=== PATIENT | male | born 1970 | race Hispanic/Latino ===

== ENCOUNTER 2021-10-28 01:12 | Emergency (ER) | payer OTHER ==
[~2021-10-28] VITALS: Ht 165.1 cm; Wt 81.6 kg
[2021-10-28] MEDS ORDERED: CASIRIVIMAB/IMDEVIMAB 10 ML in SODIUM CHLORIDE 0.9% 100 ML IV ONE (01:30)
== END 2021-10-28 02:45 | disposition home or self-care (01) ==
LOC: ER 01:22
DX: U07.1 COVID-19 (principal); R05.9 Cough, unspecified; R50.9 Fever, unspecified
CPT/HCPCS: 99282; J7050

== ENCOUNTER 2021-10-29 09:09 | Inpatient (IN) | payer OTHER ==
[2021-10-29] VITALS (14 sets, daily range): BP systolic 92–127; BP diastolic 53–83
[~2021-10-29] VITALS: Ht 170.2 cm; Wt 82.3 kg
[2021-10-29] MEDS ORDERED: DILTIAZEM HCL 5 MG/ML 5 ML VIAL IV STA (09:24)
[2021-10-29] MEDS: DEXAMETHASONE SOD PHOS 10 MG/1 ML VIAL IV SCH (09:29)
[2021-10-29] MEDS ORDERED: REMDESIVIR 100MG 200 MG in SODIUM CHLORIDE 0.9% 100 ML IV SCH (09:30)
[2021-10-29] MEDS: CEFTRIAXONE 2 GM in SODIUM CHLORIDE 0.9% 100 ML IV SCH (09:30)
[2021-10-29] MEDS ORDERED: SODIUM CHLORIDE 0.9% 500ML 500 ML IV ONE (09:30)
[2021-10-29] MEDS ORDERED: SODIUM CHLORIDE 0.9% 500ML 500 ML ONE (09:37)
[2021-10-29 09:52] LABS: BASOPHILS % 0.2 % (0.0-1.0); HEMATOCRIT 50.8 % (38.2-49.6); HEMOGLOBIN 17.2 g/dL (14.0-18.0); LYMPHOCYTES # (AUTO) 1.4 (1.0-3.2); LYMPHOCYTES % 9.3 % (18.0-39.1); MEAN CORPUSCULAR HEMOGLOBIN 31.6 pg (28-32); MEAN CORPUSCULAR HGB CONC 33.9 g/dL (31-35); MEAN CORPUSCULAR VOLUME 93.2 fL (81-99); MONOCYTES # (AUTO) 0.9 (0.2-0.8); MONOCYTES % 5.7 % (4.4-11.3); NEUTROPHILS # (AUTO) 12.5 (2.1-6.9); NEUTROPHILS % 83.1 % (38.7-80.0); PLATELET COUNT 157 x10e3/uL (140-360); RED BLOOD COUNT 5.45 x10e6/uL (4.3-5.7); RED CELL DISTRIBUTION WIDTH 13.2 % (11.7-14.4)
[2021-10-29 10:09] LABS: INR 0.93; PARTIAL THROMBOPLASTIN TIME 35.4 seconds (23.8-35.5); PROTHROMBIN TIME 13.2 seconds (11.9-14.5)
[2021-10-29 10:10] LABS: ALANINE AMINOTRANSFERASE 35 IU/L (0-55); ALBUMIN/GLOBULIN RATIO 0.6 (0.8-2.0); ALKALINE PHOSPHATASE 71 IU/L (40-150); ANION GAP 20.4 mmol/L (8-16); BLOOD UREA NITROGEN 16 mg/dL (7-26); BUN/CREATININE RATIO 20 (6-25); CALCIUM 9.3 mg/dL (8.4-10.2); CARBON DIOXIDE 24 mmol/L (22-29); CHLORIDE 103 mmol/L (98-107); CREATINE KINASE 207 IU/L (30-200); EST GLOMERULAR FILTRATION RATE 101 ML/MIN (60-); GLUCOSE 105 mg/dL (74-118); MAGNESIUM 2.4 MG/DL (1.3-2.1); POTASSIUM 4.4 mmol/L (3.5-5.1); SODIUM 143 mmol/L (136-145)
[2021-10-29] MEDS ORDERED: ENOXAPARIN INJ 80 MG/0.8 ML SYR SC ONE (10:30)
[2021-10-29] MEDS ORDERED: ACETAMINOPHEN 325 MG TAB ONE (10:37)
[2021-10-29] MEDS ORDERED: LACTATED RINGER'S 500 ML INJ ONE (11:00)
[2021-10-29] MEDS ORDERED: ACETAMINOPHEN 325 MG TAB PO ONE (11:00)
[2021-10-29 12:55] LABS: LYMPHOCYTES % (MANUAL) 7 % (19-48); MONOCYTES % (MANUAL) 5 % (3.4-9.0); NEUTROPHILS % (MANUAL) 85 % (40-74); PLATELET ESTIMATE ADEQUATE; PLATELET MORPHOLOGY COMMENT NORMAL; RBC MORPHOLOGY COMMENT NORMAL
[2021-10-29] MEDS ORDERED: AMIODARONE HCL 150 MG/100 ML BAG IV ONE (14:30)
[2021-10-29] MEDS ORDERED: AMIODARONE 900MG 500 ML IV ONE (14:30)
[2021-10-29] MEDS: DEXMEDETOMIDINE 400MCG/NS100ML 100 ML IV PRN (15:25)
[2021-10-29] MEDS: GUAIFENESIN/CODEINE 5 ML LIQD PO PRN ×2 (15:26→21:00)
[2021-10-29 17:06] LABS: CREATINE KINASE MB 0.6 ng/mL (0-5.0)
[2021-10-29] MEDS: ASCORBIC ACID 500 MG TAB PO SCH (17:06)
[2021-10-29] MEDS: ENOXAPARIN INJ 80 MG/0.8 ML SYR SC SCH (21:00)
[2021-10-29 21:31] LABS: CREATINE KINASE MB 0.5 ng/mL (0-5.0)
[2021-10-30] VITALS (23 sets, daily range): BP systolic 93–128; BP diastolic 59–89
[2021-10-30 06:37] LABS: BASOPHILS % 0.1 % (0.0-1.0); HEMATOCRIT 44.4 % (38.2-49.6); HEMOGLOBIN 14.5 g/dL (14.0-18.0); LYMPHOCYTES # (AUTO) 1.1 (1.0-3.2); LYMPHOCYTES % 8.8 % (18.0-39.1); MEAN CORPUSCULAR HEMOGLOBIN 31.3 pg (28-32); MEAN CORPUSCULAR HGB CONC 32.7 g/dL (31-35); MEAN CORPUSCULAR VOLUME 95.9 fL (81-99); MONOCYTES # (AUTO) 0.7 (0.2-0.8); MONOCYTES % 5.4 % (4.4-11.3); NEUTROPHILS # (AUTO) 10.5 (2.1-6.9); NEUTROPHILS % 85.2 % (38.7-80.0); PLATELET COUNT 175 x10e3/uL (140-360); RED BLOOD COUNT 4.63 x10e6/uL (4.3-5.7); RED CELL DISTRIBUTION WIDTH 13.3 % (11.7-14.4)
[2021-10-30 07:08] LABS: ALBUMIN 2.3 g/dL (3.5-5.0); ALBUMIN/GLOBULIN RATIO 0.6 (0.8-2.0); ANION GAP 14.2 mmol/L (8-16); CALCIUM 8.1 mg/dL (8.4-10.2); CREATININE, SERUM 0.66 mg/dL (0.72-1.25); POTASSIUM 4.2 mmol/L (3.5-5.1)
[2021-10-30 07:42] LABS: CREATINE KINASE MB 0.5 ng/mL (0-5.0)
[2021-10-30] MEDS: DEXMEDETOMIDINE 400MCG/NS100ML 100 ML IV PRN ×2 (08:51→20:32)
[2021-10-30] MEDS ORDERED: SODIUM CHLORIDE 0.9% 200 ML ONE (09:15)
[2021-10-30] MEDS ORDERED: REMDESIVIR 100MG 100 MG in SODIUM CHLORIDE 0.9% 100 ML IV SCH (10:00)
[2021-10-30] MEDS: METOPROLOL SUCCINATE 25 MG TAB XL PO SCH (10:00)
[2021-10-30] MEDS ORDERED: CEFTRIAXONE 2 GM VIAL ONE (11:09)
[2021-10-30] MEDS: ZINC SULFATE 50 MG CAP PO SCH (12:07)
[2021-10-30] MEDS: ENOXAPARIN INJ 80 MG/0.8 ML SYR SC SCH ×2 (12:07→20:16)
[2021-10-30] MEDS: ASCORBIC ACID 500 MG TAB PO SCH ×2 (12:07→17:34)
[2021-10-30] MEDS: REMDESIVIR 100MG 100 MG in SODIUM CHLORIDE 0.9% 100 ML IV SCH (12:08)
[2021-10-30] MEDS ORDERED: SODIUM CHLORIDE 0.9% IV ONE (13:15)
[2021-10-30] MEDS ORDERED: TOCILIZUMAB IV ONE (13:15)
[2021-10-30] MEDS ORDERED: AMIODARONE HCL 200 MG TAB PO ONE (14:30)
[2021-10-30] MEDS ORDERED: AMIODARONE HCL 200 MG TAB PO SCH (17:00)
[2021-10-30] MEDS: AMIODARONE HCL 200 MG TAB PO SCH (21:00)
[2021-10-31] VITALS (21 sets, daily range): BP systolic 95–143; BP diastolic 64–106
[2021-10-31] MEDS: GUAIFENESIN/CODEINE 5 ML LIQD PO PRN ×3 (00:33→18:33)
[2021-10-31 05:05] LABS: BASOPHILS % 0.1 % (0.0-1.0); HEMATOCRIT 44.6 % (38.2-49.6); HEMOGLOBIN 14.6 g/dL (14.0-18.0); LYMPHOCYTES # (AUTO) 0.9 (1.0-3.2); LYMPHOCYTES % 8.7 % (18.0-39.1); MEAN CORPUSCULAR HEMOGLOBIN 31.1 pg (28-32); MEAN CORPUSCULAR HGB CONC 32.7 g/dL (31-35); MEAN CORPUSCULAR VOLUME 95.1 fL (81-99); MONOCYTES # (AUTO) 0.7 (0.2-0.8); MONOCYTES % 6.6 % (4.4-11.3); NEUTROPHILS # (AUTO) 8.7 (2.1-6.9); PLATELET COUNT 207 x10e3/uL (140-360); RED BLOOD COUNT 4.69 x10e6/uL (4.3-5.7); RED CELL DISTRIBUTION WIDTH 12.9 % (11.7-14.4)
[2021-10-31 05:33] LABS: ALBUMIN 2.4 g/dL (3.5-5.0); ALBUMIN/GLOBULIN RATIO 0.6 (0.8-2.0); ANION GAP 14.1 mmol/L (8-16); CALCIUM 7.9 mg/dL (8.4-10.2); CREATININE, SERUM 0.63 mg/dL (0.72-1.25); POTASSIUM 4.1 mmol/L (3.5-5.1)
[2021-10-31] MEDS: DEXAMETHASONE SOD PHOS 10 MG/1 ML VIAL IV SCH (09:44)
[2021-10-31] MEDS: CEFTRIAXONE 2 GM in SODIUM CHLORIDE 0.9% 100 ML IV SCH (09:44)
[2021-10-31] MEDS: ENOXAPARIN INJ 80 MG/0.8 ML SYR SC SCH ×2 (09:45→20:56)
[2021-10-31] MEDS: ZINC SULFATE 50 MG CAP PO SCH (09:45)
[2021-10-31] MEDS: ASCORBIC ACID 500 MG TAB PO SCH ×2 (09:45→17:00)
[2021-10-31] MEDS: AMIODARONE HCL 200 MG TAB PO SCH ×2 (09:45→20:56)
[2021-10-31] MEDS: METOPROLOL SUCCINATE 25 MG TAB XL PO SCH (09:45)
[2021-10-31] MEDS: REMDESIVIR 100MG 100 MG in SODIUM CHLORIDE 0.9% 100 ML IV SCH (09:45)
[2021-10-31] MEDS ORDERED: SODIUM CHLORIDE 0.9% 100 ML ONE (18:04)
[2021-10-31] MEDS: DEXMEDETOMIDINE 400MCG/NS100ML 100 ML IV PRN (18:05)
[2021-10-31] MEDS ORDERED: TOCILIZUMAB 400 MG in SODIUM CHLORIDE 0.9% 100 ML IV SCH (18:15)
[2021-11-01] VITALS (24 sets, daily range): BP systolic 97–141; BP diastolic 74–97
[2021-11-01] MEDS: DEXMEDETOMIDINE 400MCG/NS100ML 100 ML IV PRN ×4 (00:42→20:29)
[2021-11-01 05:07] LABS: BASOPHILS % 0.2 % (0.0-1.0); HEMATOCRIT 45.3 % (38.2-49.6); HEMOGLOBIN 15.2 g/dL (14.0-18.0); LYMPHOCYTES # (AUTO) 0.9 (1.0-3.2); LYMPHOCYTES % 7.4 % (18.0-39.1); MEAN CORPUSCULAR HEMOGLOBIN 31.1 pg (28-32); MEAN CORPUSCULAR HGB CONC 33.6 g/dL (31-35); MEAN CORPUSCULAR VOLUME 92.8 fL (81-99); MONOCYTES # (AUTO) 0.6 (0.2-0.8); MONOCYTES % 4.6 % (4.4-11.3); NEUTROPHILS # (AUTO) 10.9 (2.1-6.9); NEUTROPHILS % 86.5 % (38.7-80.0); PLATELET COUNT 270 x10e3/uL (140-360); RED BLOOD COUNT 4.88 x10e6/uL (4.3-5.7); RED CELL DISTRIBUTION WIDTH 12.5 % (11.7-14.4)
[2021-11-01 05:22] LABS: ALBUMIN 2.5 g/dL (3.5-5.0); ALBUMIN/GLOBULIN RATIO 0.7 (0.8-2.0); CREATININE, SERUM 0.7 mg/dL (0.72-1.25)
[2021-11-01] MEDS: GUAIFENESIN/CODEINE 5 ML LIQD PO PRN ×2 (06:34→13:17)
[2021-11-01] MEDS: METOPROLOL SUCCINATE 25 MG TAB XL PO SCH (08:25)
[2021-11-01] MEDS: CEFTRIAXONE 2 GM in SODIUM CHLORIDE 0.9% 100 ML IV SCH (08:25)
[2021-11-01] MEDS: DEXAMETHASONE SOD PHOS 10 MG/1 ML VIAL IV SCH (08:25)
[2021-11-01] MEDS: AMIODARONE HCL 200 MG TAB PO SCH ×2 (08:25→21:37)
[2021-11-01] MEDS: ASCORBIC ACID 500 MG TAB PO SCH ×2 (08:26→17:15)
[2021-11-01] MEDS: ZINC SULFATE 50 MG CAP PO SCH (08:26)
[2021-11-01] MEDS: REMDESIVIR 100MG 100 MG in SODIUM CHLORIDE 0.9% 100 ML IV SCH (08:26)
[2021-11-01] MEDS: ENOXAPARIN INJ 80 MG/0.8 ML SYR SC SCH ×2 (08:26→21:37)
[2021-11-01] MEDS: BENZONATATE 100 MG CAP PO PRN (13:17)
[2021-11-01] MEDS ORDERED: POLYETHYLENE GLYCOL 3350 17 GM PACK PO PRN ×2 (17:30)
[2021-11-01] MEDS: DOCUSATE SODIUM 100 MG CAP PO SCH (18:07)
[2021-11-02] VITALS (26 sets, daily range): BP systolic 100–145; BP diastolic 66–98
[2021-11-02] MEDS: BENZONATATE 100 MG CAP PO PRN ×2 (01:46→14:31)
[2021-11-02] MEDS: GUAIFENESIN/CODEINE 5 ML LIQD PO PRN (01:46)
[2021-11-02 05:17] LABS: BASOPHILS % 0.2 % (0.0-1.0); HEMATOCRIT 48.9 % (38.2-49.6); HEMOGLOBIN 16.4 g/dL (14.0-18.0); LYMPHOCYTES % 7.9 % (18.0-39.1); MEAN CORPUSCULAR HEMOGLOBIN 31.1 pg (28-32); MEAN CORPUSCULAR HGB CONC 33.5 g/dL (31-35); MEAN CORPUSCULAR VOLUME 92.6 fL (81-99); MONOCYTES # (AUTO) 0.4 (0.2-0.8); MONOCYTES % 3.2 % (4.4-11.3); NEUTROPHILS % 87.4 % (38.7-80.0); PLATELET COUNT 286 x10e3/uL (140-360); RED BLOOD COUNT 5.28 x10e6/uL (4.3-5.7); RED CELL DISTRIBUTION WIDTH 12.5 % (11.7-14.4)
[2021-11-02 05:52] LABS: ALBUMIN 2.6 g/dL (3.5-5.0); ALBUMIN/GLOBULIN RATIO 0.7 (0.8-2.0); ANION GAP 13.1 mmol/L (8-16); CALCIUM 8.2 mg/dL (8.4-10.2); CREATININE, SERUM 0.66 mg/dL (0.72-1.25); POTASSIUM 4.1 mmol/L (3.5-5.1)
[2021-11-02] MEDS: ZINC SULFATE 50 MG CAP PO SCH (08:38)
[2021-11-02] MEDS: ASCORBIC ACID 500 MG TAB PO SCH ×2 (08:38→16:12)
[2021-11-02] MEDS: DOCUSATE SODIUM 100 MG CAP PO SCH (08:38)
[2021-11-02] MEDS: DEXAMETHASONE SOD PHOS 10 MG/1 ML VIAL IV SCH (08:38)
[2021-11-02] MEDS: METOPROLOL SUCCINATE 25 MG TAB XL PO SCH (08:38)
[2021-11-02] MEDS: CEFTRIAXONE 2 GM in SODIUM CHLORIDE 0.9% 100 ML IV SCH (08:38)
[2021-11-02] MEDS: ENOXAPARIN INJ 80 MG/0.8 ML SYR SC SCH ×2 (08:38→20:33)
[2021-11-02] MEDS: AMIODARONE HCL 200 MG TAB PO SCH ×2 (08:38→20:33)
[2021-11-02] MEDS: DEXMEDETOMIDINE 400MCG/NS100ML 100 ML IV PRN ×3 (09:25→21:50)
[2021-11-02] MEDS: REMDESIVIR 100MG 100 MG in SODIUM CHLORIDE 0.9% 100 ML IV SCH (09:43)
[2021-11-03] VITALS (23 sets, daily range): BP systolic 79–122; BP diastolic 54–87
[2021-11-03] MEDS: DEXMEDETOMIDINE 400MCG/NS100ML 100 ML IV PRN (03:30)
[2021-11-03] MEDS ORDERED: ONDANSETRON HCL INJ 2MG/ML 2ML 2 MG/ML VIAL IV PRN (06:00)
[2021-11-03 06:05] LABS: BASOPHILS % 0.3 % (0.0-1.0); EOSINOPHILS # (AUTO) 0.1 (0.0-0.4); EOSINOPHILS % 0.9 % (0.0-6.0); HEMATOCRIT 49.6 % (38.2-49.6); HEMOGLOBIN 16.8 g/dL (14.0-18.0); LYMPHOCYTES # (AUTO) 1.4 (1.0-3.2); LYMPHOCYTES % 10.2 % (18.0-39.1); MEAN CORPUSCULAR HEMOGLOBIN 31.2 pg (28-32); MEAN CORPUSCULAR HGB CONC 33.9 g/dL (31-35); MEAN CORPUSCULAR VOLUME 92.2 fL (81-99); MONOCYTES # (AUTO) 0.4 (0.2-0.8); MONOCYTES % 3.1 % (4.4-11.3); NEUTROPHILS # (AUTO) 11.7 (2.1-6.9); NEUTROPHILS % 83.7 % (38.7-80.0); PLATELET COUNT 324 x10e3/uL (140-360); RED BLOOD COUNT 5.38 x10e6/uL (4.3-5.7); RED CELL DISTRIBUTION WIDTH 12.4 % (11.7-14.4)
[2021-11-03 06:32] LABS: ALBUMIN 2.5 g/dL (3.5-5.0); ALBUMIN/GLOBULIN RATIO 0.7 (0.8-2.0); ANION GAP 12.2 mmol/L (8-16); CALCIUM 8.3 mg/dL (8.4-10.2); CREATININE, SERUM 0.7 mg/dL (0.72-1.25); POTASSIUM 4.2 mmol/L (3.5-5.1)
[2021-11-03] MEDS: DOCUSATE SODIUM 100 MG CAP PO SCH (08:05)
[2021-11-03] MEDS: METOPROLOL SUCCINATE 25 MG TAB XL PO SCH (08:05)
[2021-11-03] MEDS: ENOXAPARIN INJ 80 MG/0.8 ML SYR SC SCH ×2 (08:05→21:28)
[2021-11-03] MEDS: AMIODARONE HCL 200 MG TAB PO SCH (08:05)
[2021-11-03] MEDS: DEXAMETHASONE SOD PHOS 10 MG/1 ML VIAL IV SCH (08:05)
[2021-11-03] MEDS: ASCORBIC ACID 500 MG TAB PO SCH ×2 (08:05→17:14)
[2021-11-03] MEDS: ZINC SULFATE 50 MG CAP PO SCH (08:05)
[2021-11-03] MEDS: CEFTRIAXONE 2 GM in SODIUM CHLORIDE 0.9% 100 ML IV SCH (08:05)
[2021-11-03] MEDS ORDERED: ALBUMIN 25% 12.5GM 0.25 GM/ML BTL IV ONE (16:15)
[2021-11-03] MEDS ORDERED: ALBUMIN 25% 25GM 100ML 200 ML ONE (16:22)
[2021-11-03] MEDS ORDERED: ALBUMIN 25% 25GM 100ML 200 ML IV ONE (16:30)
[2021-11-03] MEDS: GUAIFENESIN/CODEINE 5 ML LIQD PO PRN (21:28)
[2021-11-03] MEDS: BENZONATATE 100 MG CAP PO PRN (23:33)
[2021-11-04] VITALS (25 sets, daily range): BP systolic 61–140; BP diastolic 48–85
[2021-11-04] MEDS: DEXMEDETOMIDINE 400MCG/NS100ML 100 ML IV PRN ×5 (02:34→23:18)
[2021-11-04 05:50] LABS: BASOPHILS % 0.2 % (0.0-1.0); EOSINOPHILS # (AUTO) 0.1 (0.0-0.4); EOSINOPHILS % 0.6 % (0.0-6.0); HEMOGLOBIN 15.5 g/dL (14.0-18.0); LYMPHOCYTES # (AUTO) 0.9 (1.0-3.2); LYMPHOCYTES % 5.9 % (18.0-39.1); MEAN CORPUSCULAR HEMOGLOBIN 31.1 pg (28-32); MEAN CORPUSCULAR HGB CONC 34.4 g/dL (31-35); MEAN CORPUSCULAR VOLUME 90.4 fL (81-99); MONOCYTES # (AUTO) 0.5 (0.2-0.8); NEUTROPHILS # (AUTO) 13.6 (2.1-6.9); NEUTROPHILS % 88.2 % (38.7-80.0); PLATELET COUNT 342 x10e3/uL (140-360); RED BLOOD COUNT 4.98 x10e6/uL (4.3-5.7); RED CELL DISTRIBUTION WIDTH 12.4 % (11.7-14.4)
[2021-11-04 06:14] LABS: ALBUMIN 3.3 g/dL (3.5-5.0); ALBUMIN/GLOBULIN RATIO 1.2 (0.8-2.0); ANION GAP 12.3 mmol/L (8-16); CALCIUM 8.2 mg/dL (8.4-10.2); CREATININE, SERUM 0.69 mg/dL (0.72-1.25); POTASSIUM 4.3 mmol/L (3.5-5.1)
[2021-11-04] MEDS: DEXAMETHASONE SOD PHOS 10 MG/1 ML VIAL IV SCH (08:37)
[2021-11-04] MEDS: DOCUSATE SODIUM 100 MG CAP PO SCH ×3 (08:37→17:27)
[2021-11-04] MEDS: METOPROLOL SUCCINATE 25 MG TAB XL PO SCH (08:37)
[2021-11-04] MEDS: ENOXAPARIN INJ 80 MG/0.8 ML SYR SC SCH ×2 (08:38→21:18)
[2021-11-04] MEDS: CEFTRIAXONE 2 GM in SODIUM CHLORIDE 0.9% 100 ML IV SCH (08:38)
[2021-11-04] MEDS: ZINC SULFATE 50 MG CAP PO SCH (08:38)
[2021-11-04] MEDS: ASCORBIC ACID 500 MG TAB PO SCH ×2 (08:38→17:26)
[2021-11-04] MEDS ORDERED: BISACODYL 10 MG SUPP PR PRN (15:15)
[2021-11-04] MEDS: POLYETHYLENE GLYCOL 3350 17 GM PACK PO SCH (17:26)
[2021-11-04] MEDS: GUAIFENESIN/CODEINE 5 ML LIQD PO PRN ×2 (19:55→23:31)
[2021-11-04] MEDS ORDERED: MELATONIN 3 MG TAB PO PRN (21:00)
[2021-11-04] MEDS: BENZONATATE 100 MG CAP PO PRN (21:35)
[2021-11-05] VITALS (25 sets, daily range): BP systolic 78–112; BP diastolic 45–76
[2021-11-05] MEDS: DEXMEDETOMIDINE 400MCG/NS100ML 100 ML IV PRN (03:37)
[2021-11-05] MEDS: GUAIFENESIN/CODEINE 5 ML LIQD PO PRN (04:28)
[2021-11-05 05:51] LABS: BASOPHILS # (AUTO) 0.1 (0.0-0.1); BASOPHILS % 0.3 % (0.0-1.0); EOSINOPHILS # (AUTO) 0.1 (0.0-0.4); EOSINOPHILS % 0.6 % (0.0-6.0); HEMATOCRIT 56.4 % (38.2-49.6); HEMOGLOBIN 18.3 g/dL (14.0-18.0); LYMPHOCYTES # (AUTO) 0.8 (1.0-3.2); LYMPHOCYTES % 3.2 % (18.0-39.1); MEAN CORPUSCULAR HEMOGLOBIN 30.9 pg (28-32); MEAN CORPUSCULAR HGB CONC 32.4 g/dL (31-35); MEAN CORPUSCULAR VOLUME 95.3 fL (81-99); MONOCYTES # (AUTO) 0.8 (0.2-0.8); MONOCYTES % 3.5 % (4.4-11.3); NEUTROPHILS # (AUTO) 21.5 (2.1-6.9); PLATELET COUNT 339 x10e3/uL (140-360); RED BLOOD COUNT 5.92 x10e6/uL (4.3-5.7); RED CELL DISTRIBUTION WIDTH 12.6 % (11.7-14.4)
[2021-11-05 06:14] LABS: ALBUMIN/GLOBULIN RATIO 1.1 (0.8-2.0); ANION GAP 16.4 mmol/L (8-16); CALCIUM 8.2 mg/dL (8.4-10.2); CREATININE, SERUM 0.78 mg/dL (0.72-1.25); POTASSIUM 4.4 mmol/L (3.5-5.1)
[2021-11-05 06:31] LABS: MAGNESIUM 2.3 MG/DL (1.3-2.1); PHOSPHORUS 5.1 MG/DL (2.3-4.7)
[2021-11-05] MEDS ORDERED: SODIUM CHLORIDE 0.9% 500ML 500 ML IV ONE ×2 (08:15→17:45)
[2021-11-05] MEDS ORDERED: Vancomycin IV 1 GM in SODIUM CHLORIDE 0.9% 250ML 250 ML IV ONE (08:15)
[2021-11-05] MEDS ORDERED: NOREPINEPHRINE 8 MG/D5W 250 ML 250 ML ONE (08:16)
[2021-11-05] MEDS: ASCORBIC ACID 500 MG TAB PO SCH ×2 (09:00→16:35)
[2021-11-05] MEDS: ZINC SULFATE 50 MG CAP PO SCH (09:00)
[2021-11-05] MEDS: FENTANYL 2000MCG/NS 250 250 ML IV SCH ×2 (09:00→18:00)
[2021-11-05] MEDS: MIDAZOLAM HCL 5MG/ML 10ML VIAL 100 ML IV PRN ×3 (09:00→19:17)
[2021-11-05] MEDS: POLYETHYLENE GLYCOL 3350 17 GM PACK PO SCH ×2 (09:00→16:35)
[2021-11-05] MEDS: DOCUSATE SODIUM 100 MG CAP PO SCH ×2 (09:00→16:35)
[2021-11-05] MEDS: METOPROLOL SUCCINATE 25 MG TAB XL PO SCH (09:00)
[2021-11-05] MEDS: NOREPINEPHRINE 8 MG/D5W 250 ML 250 ML IV SCH ×2 (10:00→22:00)
[2021-11-05] MEDS: MEROPENEM 1 GM in SODIUM CHLORIDE 0.9% 100 ML IV SCH ×3 (10:38→17:50)
[2021-11-05] MEDS: ROCURONIUM 1250MG/NS 250 250 ML IV PRN (10:39)
[2021-11-05 11:22] LABS: CLARITY,URINE SL CLOUDY (CLEAR); COLOR,URINE YELLOW (YELLOW); KETONES,URINE 1+ (NEGATIVE); LEUKOCYTE ESTERASE ,URINE NEGATIVE (NEGATIVE); NITRITE,URINE NEGATIVE (NEGATIVE); PROTEIN,URINE DIPSTICK 1+ (NEGATIVE); URINE UROBILINOGEN 0.2 mg/dL (0.2 - 1)
[2021-11-05 11:26] LABS: BACTERIA,URINE FEW /HPF; EPITHELIAL CELLS,URINE FEW /LPF; MUCUS,URINE MODERATE (RARE); RBC,URINE 0-5 /HPF (0-5); WBC,URINE (MAN) 0-5 /HPF (0-5)
[2021-11-05] MEDS ORDERED: Vancomycin IV 1 GM in SODIUM CHLORIDE 0.9% 250ML 250 ML IV SCH (11:45)
[2021-11-05 13:07] LABS: ABG PCO2 48 mmHg (35-45); ABG PH 7.24 (7.35-7.45); ABG PO2 57 mmHg (80-105)
[2021-11-05 13:08] LABS: ABG HCO3 21 mmol/L (22-26); ABG TCO2 22
[2021-11-05] MEDS ORDERED: WATER STERILE 10 ML VIAL ONE (19:36)
[2021-11-05] MEDS ORDERED: SUCCINYLCHOLINE CHLORIDE 20 MG/ML 10ML VIAL ONE (19:36)
[2021-11-05] MEDS ORDERED: ETOMIDATE 2 MG/ML 10 ML INJ IV ONE (19:36)
[2021-11-05] MEDS ORDERED: MIDAZOLAM HCL 2 MG/2 ML VIAL ONE (19:36)
[2021-11-05] MEDS ORDERED: VECURONIUM BROMIDE FOR INJ 20 MG VIAL ONE (19:36)
[2021-11-05] MEDS: Vancomycin IV 1 GM in SODIUM CHLORIDE 0.9% 250ML 250 ML IV SCH (23:01)
[2021-11-05] MEDS: ACETAMINOPHEN 325 MG/10 ML UDC NG PRN (23:38)
[2021-11-06] VITALS (26 sets, daily range): BP systolic 79–128; BP diastolic 51–69
[2021-11-06] MEDS: MIDAZOLAM HCL 5MG/ML 10ML VIAL 100 ML IV PRN ×5 (00:47→22:31)
[2021-11-06] MEDS: MEROPENEM 1 GM in SODIUM CHLORIDE 0.9% 100 ML IV SCH ×4 (02:13→22:05)
[2021-11-06] MEDS: FENTANYL 2000MCG/NS 250 250 ML IV SCH ×2 (02:14→10:27)
[2021-11-06 05:36] LABS: BASOPHILS # (AUTO) 0.1 (0.0-0.1); BASOPHILS % 0.4 % (0.0-1.0); EOSINOPHILS # (AUTO) 0.3 (0.0-0.4); EOSINOPHILS % 0.9 % (0.0-6.0); HEMATOCRIT 52.4 % (38.2-49.6); HEMOGLOBIN 16.9 g/dL (14.0-18.0); LYMPHOCYTES # (AUTO) 1.2 (1.0-3.2); LYMPHOCYTES % 4.1 % (18.0-39.1); MEAN CORPUSCULAR HEMOGLOBIN 31.2 pg (28-32); MEAN CORPUSCULAR HGB CONC 32.3 g/dL (31-35); MEAN CORPUSCULAR VOLUME 96.9 fL (81-99); MONOCYTES # (AUTO) 1.5 (0.2-0.8); MONOCYTES % 5.1 % (4.4-11.3); NEUTROPHILS # (AUTO) 25.3 (2.1-6.9); NEUTROPHILS % 87.1 % (38.7-80.0); PLATELET COUNT 196 x10e3/uL (140-360); RED BLOOD COUNT 5.41 x10e6/uL (4.3-5.7); RED CELL DISTRIBUTION WIDTH 13.2 % (11.7-14.4)
[2021-11-06 06:11] LABS: ALBUMIN 2.6 g/dL (3.5-5.0); ALBUMIN/GLOBULIN RATIO 1.1 (0.8-2.0); ANION GAP 16.3 mmol/L (8-16); CALCIUM 7.3 mg/dL (8.4-10.2); CREATININE, SERUM 1.58 mg/dL (0.72-1.25); POTASSIUM 4.3 mmol/L (3.5-5.1)
[2021-11-06] MEDS: POLYETHYLENE GLYCOL 3350 17 GM PACK PO SCH ×2 (07:29→16:35)
[2021-11-06] MEDS: DOCUSATE SODIUM 100 MG CAP PO SCH ×2 (07:29→16:34)
[2021-11-06] MEDS: METOPROLOL SUCCINATE 25 MG TAB XL PO SCH (07:30)
[2021-11-06 07:45] LABS: ABG HCO3 20 mmol/L (22-26); ABG PCO2 41 mmHg (35-45); ABG PH 7.29 (7.35-7.45); ABG PO2 89 mmHg (80-105)
[2021-11-06 07:46] LABS: ABG TCO2 21
[2021-11-06] MEDS ORDERED: SODIUM CHLORIDE 0.9% 1000ML 1,000 ML ONE (09:06)
[2021-11-06] MEDS: ZINC SULFATE 50 MG CAP PO SCH (10:27)
[2021-11-06] MEDS: Vancomycin IV 1 GM in SODIUM CHLORIDE 0.9% 250ML 250 ML IV SCH ×2 (10:27→23:06)
[2021-11-06] MEDS: ASCORBIC ACID 500 MG TAB PO SCH ×2 (10:27→16:35)
[2021-11-06 11:25] LABS: BAND NEUTROPHILS % (MANUAL) 1 %; LYMPHOCYTES % (MANUAL) 1 % (19-48); MONOCYTES % (MANUAL) 4 % (3.4-9.0); NEUTROPHILS % (MANUAL) 94 % (40-74); PLATELET ESTIMATE ADEQUATE; PLATELET MORPHOLOGY COMMENT NORMAL; RBC MORPHOLOGY COMMENT NORMAL
[2021-11-06] MEDS ORDERED: LACTATED RINGER'S 1,000 ML INJ ONE (13:00)
[2021-11-06] MEDS ORDERED: VASOPRESSIN 60 UNIT in DEXTROSE 5% 50ML 57 ML IV PRN (16:45)
[2021-11-06 17:05] LABS: ABG HCO3 20 mmol/L (22-26); ABG PCO2 37 mmHg (35-45); ABG PH 7.35 (7.35-7.45); ABG PO2 79 mmHg (80-105); ABG TCO2 21
[2021-11-06] MEDS: FLUCONAZOLE 200 MG/100 ML 100 ML IV SCH (17:15)
[2021-11-06] MEDS ORDERED: ENOXAPARIN 30 MG/0.3 ML SYR SC SCH (18:00)
[2021-11-06] MEDS: NOREPINEPHRINE 8 MG/D5W 250 ML 250 ML IV SCH ×2 (18:34→23:06)
[2021-11-07] VITALS (24 sets, daily range): BP systolic 94–131; BP diastolic 52–68
[2021-11-07] MEDS: FENTANYL 2000MCG/NS 250 250 ML IV SCH ×4 (00:18→21:04)
[2021-11-07] MEDS: NOREPINEPHRINE 8 MG/D5W 250 ML 250 ML IV SCH ×4 (03:16→18:21)
[2021-11-07] MEDS: MIDAZOLAM HCL 5MG/ML 10ML VIAL 100 ML IV PRN ×5 (03:17→22:07)
[2021-11-07] MEDS: MEROPENEM 1 GM in SODIUM CHLORIDE 0.9% 100 ML IV SCH ×3 (05:36→21:19)
[2021-11-07 06:01] LABS: BASOPHILS # (AUTO) 0.1 (0.0-0.1); BASOPHILS % 0.2 % (0.0-1.0); EOSINOPHILS # (AUTO) 0.5 (0.0-0.4); EOSINOPHILS % 2.1 % (0.0-6.0); HEMATOCRIT 45.9 % (38.2-49.6); HEMOGLOBIN 15.2 g/dL (14.0-18.0); LYMPHOCYTES # (AUTO) 1.8 (1.0-3.2); LYMPHOCYTES % 7.1 % (18.0-39.1); MEAN CORPUSCULAR HEMOGLOBIN 31.3 pg (28-32); MEAN CORPUSCULAR HGB CONC 33.1 g/dL (31-35); MEAN CORPUSCULAR VOLUME 94.6 fL (81-99); MONOCYTES # (AUTO) 1.2 (0.2-0.8); MONOCYTES % 4.7 % (4.4-11.3); NEUTROPHILS # (AUTO) 21.2 (2.1-6.9); NEUTROPHILS % 84.5 % (38.7-80.0); PLATELET COUNT 120 x10e3/uL (140-360); RED BLOOD COUNT 4.85 x10e6/uL (4.3-5.7); RED CELL DISTRIBUTION WIDTH 13.3 % (11.7-14.4)
[2021-11-07 06:20] LABS: ALBUMIN 2.2 g/dL (3.5-5.0); ANION GAP 11.7 mmol/L (8-16); CALCIUM 7.2 mg/dL (8.4-10.2); CREATININE, SERUM 0.69 mg/dL (0.72-1.25); POTASSIUM 3.7 mmol/L (3.5-5.1)
[2021-11-07 06:56] LABS: EOSINOPHILS % (MANUAL) 1 % (0-7); LYMPHOCYTES % (MANUAL) 5 % (19-48); MONOCYTES % (MANUAL) 1 % (3.4-9.0); NEUTROPHILS % (MANUAL) 91 % (40-74); RBC MORPHOLOGY COMMENT NORMAL
[2021-11-07 06:57] LABS: PLATELET ESTIMATE SLIGHTLY DECREASED; PLATELET MORPHOLOGY COMMENT NORMAL
[2021-11-07 07:52] LABS: ABG PCO2 38 mmHg (35-45); ABG PH 7.42 (7.35-7.45)
[2021-11-07 07:53] LABS: ABG HCO3 25 mmol/L (22-26); ABG PO2 88 mmHg (80-105); ABG TCO2 26
[2021-11-07] MEDS: DOCUSATE SODIUM 100 MG CAP PO SCH ×2 (08:40→17:00)
[2021-11-07] MEDS: ASCORBIC ACID 500 MG TAB PO SCH ×2 (09:31→17:55)
[2021-11-07] MEDS: METOPROLOL SUCCINATE 25 MG TAB XL PO SCH (09:31)
[2021-11-07] MEDS: ZINC SULFATE 50 MG CAP PO SCH (09:31)
[2021-11-07] MEDS: POLYETHYLENE GLYCOL 3350 17 GM PACK PO SCH ×2 (09:31→17:55)
[2021-11-07] MEDS: ENOXAPARIN INJ 80 MG/0.8 ML SYR SC SCH ×2 (09:32→21:16)
[2021-11-07] MEDS: Vancomycin IV 1 GM in SODIUM CHLORIDE 0.9% 250ML 250 ML IV SCH ×2 (10:11→21:31)
[2021-11-07] MEDS: ACETAMINOPHEN 325 MG/10 ML UDC NG PRN ×2 (13:37→20:12)
[2021-11-07] MEDS ORDERED: LACTATED RINGER'S 1,000 ML INJ ONE (14:15)
[2021-11-07 14:42] LABS: ABG HCO3 28 mmol/L (22-26); ABG PCO2 61 mmHg (35-45); ABG PH 7.26 (7.35-7.45); ABG PO2 65 mmHg (80-105); ABG TCO2 29
[2021-11-07] MEDS: FLUCONAZOLE 200 MG/100 ML 100 ML IV SCH (18:09)
[2021-11-07] MEDS: METOPROLOL TARTRATE INJ 1 MG/ML VIAL IV PRN (21:59)
[2021-11-07] MEDS: ROCURONIUM 1250MG/NS 250 250 ML IV PRN (22:06)
[2021-11-08] VITALS: BP 115/63
[2021-11-08 01:00] VITALS: BP 126/67
[2021-11-08] MEDS: NOREPINEPHRINE 8 MG/D5W 250 ML 250 ML IV SCH (01:28)
[2021-11-08 02:00] VITALS: BP 126/68
[2021-11-08] MEDS: METOPROLOL TARTRATE INJ 1 MG/ML VIAL IV PRN (02:40)
[2021-11-08 03:00] VITALS: BP 122/60
[2021-11-08] MEDS: FENTANYL 2000MCG/NS 250 250 ML IV SCH (03:18)
[2021-11-08] MEDS: MIDAZOLAM HCL 5MG/ML 10ML VIAL 100 ML IV PRN (03:19)
[2021-11-08 04:00] VITALS: BP 94/54
[2021-11-08] MEDS ORDERED: EPINEPHRINE HCL SYRINGE ONE ×2 (04:54→12:08)
[2021-11-08] MEDS ORDERED: DEXTROSE 5% 250ML 250 ML IV ONE (04:55)
[2021-11-08] MEDS ORDERED: SODIUM BICARBONATE 8.4% SYRING 0 ML ONE (05:03)
[2021-11-08 05:08] LABS: BASOPHILS # (AUTO) 0.1 (0.0-0.1); BASOPHILS % 0.3 % (0.0-1.0); EOSINOPHILS # (AUTO) 0.1 (0.0-0.4); EOSINOPHILS % 0.1 % (0.0-6.0); HEMATOCRIT 50.9 % (38.2-49.6); HEMOGLOBIN 15.3 g/dL (14.0-18.0); LYMPHOCYTES # (AUTO) 1.5 (1.0-3.2); LYMPHOCYTES % 4.4 % (18.0-39.1); MEAN CORPUSCULAR HEMOGLOBIN 31.5 pg (28-32); MEAN CORPUSCULAR HGB CONC 30.1 g/dL (31-35); MEAN CORPUSCULAR VOLUME 104.7 fL (81-99); MONOCYTES # (AUTO) 1.6 (0.2-0.8); MONOCYTES % 4.8 % (4.4-11.3); NEUTROPHILS # (AUTO) 29.2 (2.1-6.9); NEUTROPHILS % 87.7 % (38.7-80.0); PLATELET COUNT 106 x10e3/uL (140-360); RED BLOOD COUNT 4.86 x10e6/uL (4.3-5.7); RED CELL DISTRIBUTION WIDTH 13.8 % (11.7-14.4)
[2021-11-08] MEDS ORDERED: SODIUM BICARBONATE 8.4% SYRING 100 ML ONE (05:12)
[2021-11-08 05:23] LABS: ALBUMIN 2.1 g/dL (3.5-5.0); ALBUMIN/GLOBULIN RATIO 0.9 (0.8-2.0); ANION GAP 16.9 mmol/L (8-16); CALCIUM 7.4 mg/dL (8.4-10.2); CREATININE, SERUM 1.18 mg/dL (0.72-1.25)
[2021-11-08 05:29] LABS: ABG PCO2 130 mmHg (35-45); ABG PH 6.93 (7.35-7.45)
[2021-11-08 05:30] LABS: ABG PO2 24 mmHg (80-105)
[2021-11-08 05:52] LABS: POTASSIUM 5.9 mmol/L (3.5-5.1)
[2021-11-08 10:13] LABS: LYMPHOCYTES % (MANUAL) 4 % (19-48); MONOCYTES % (MANUAL) 1 % (3.4-9.0); NEUTROPHILS % (MANUAL) 95 % (40-74)
[2021-11-08 10:14] LABS: PLATELET ESTIMATE SLIGHTLY DECREASED; PLATELET MORPHOLOGY COMMENT NORMAL; RBC MORPHOLOGY COMMENT NORMAL
[2021-11-08] MEDS ORDERED: CALCIUM CHLORIDE 10% 1.36 MEQ/ML 10ML SYR IV ONE (12:08)
[2021-11-08] MEDS ORDERED: SODIUM BICARBONATE 8.4% INJ 50 ML SYR ONE (12:08)
[2021-11-08] MEDS ORDERED: SODIUM CHLORIDE FLUSH 10 ML SYR ONE (12:08)
[2021-11-08] MEDS ORDERED: ATROPINE SULFATE 0.1 MG/ML 10ML SYR ONE (12:08)
== END 2021-11-08 10:40 | disposition expired | DRG 871 ==
LOC: ER 09:13 → ERHOLD 10:20 → ICU 11:09
PROVIDERS: ADMIT Internal Medicine; ATTEND Internal Medicine
PROC: 02HV33Z Insertion of Infusion Device into Superior Vena Cava, Percutaneous Approach (ICD-10-PCS; 2021-10-29)
PROC: XW043E5 Introduction of Remdesivir Anti-infective into Central Vein, Percutaneous Approach, New Technology Group 5 (ICD-10-PCS; 2021-10-29)
PROC: XW033H5 Introduction of Tocilizumab into Peripheral Vein, Percutaneous Approach, New Technology Group 5 (ICD-10-PCS; 2021-10-30)
PROC: 3E0433Z Introduction of Anti-inflammatory into Central Vein, Percutaneous Approach (ICD-10-PCS; 2021-10-30)
PROC: 5A1945Z Respiratory Ventilation, 24-96 Consecutive Hours (ICD-10-PCS; principal; 2021-11-05)
PROC: 0BH18EZ Insertion of Endotracheal Airway into Trachea, Via Natural or Artificial Opening Endoscopic (ICD-10-PCS; 2021-11-05)
PROC: 3E043XZ Introduction of Vasopressor into Central Vein, Percutaneous Approach (ICD-10-PCS; 2021-11-05)
PROC: 5A12012 Performance of Cardiac Output, Single, Manual (ICD-10-PCS; 2021-11-08)
DX: A41.89 Other specified sepsis (principal); U07.1 COVID-19; N17.0 Acute kidney failure with tubular necrosis; J12.82 Pneumonia due to coronavirus disease 2019; J15.9 Unspecified bacterial pneumonia; J80 Acute respiratory distress syndrome; R65.21 Severe sepsis with septic shock; B17.8 Other specified acute viral hepatitis; I48.0 Paroxysmal atrial fibrillation; E88.09 Other disorders of plasma-protein metabolism, not elsewhere classified; G47.00 Insomnia, unspecified; J98.2 Interstitial emphysema; D69.6 Thrombocytopenia, unspecified; K59.00 Constipation, unspecified; I46.9 Cardiac arrest, cause unspecified
CPT/HCPCS: 36415; 36569; 36600; 71045; 71250; 74018; 80053; 81001; 82550; 82553; 82728; 82805; 82948; 83615; 83735; 83880; 84100; 84484; 85025; 85610; 85730; 86141; 87040; 87070; 87205; 92950; 93005; 93306; 94003; 94799; 97139; 99251; 99284; J0171; J0248; J0330; J0456; J0696; J1100; J1450; J1650; J2185; J2250; J2405; J3370; J7030; J7040; J7050; J7070; J7121; P9047; U0002